=== PATIENT | female | born 2005 | race Caucasian/White ===

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

== ENCOUNTER 2023-12-08 18:19 | Emergency (ER) | payer MEDICAID ==
--- NOTE | 2023-12-08 18:58 | ED ---
ENT HPI - General Source: patient, family, RN notes reviewed - History of Present Illness MD complaint: tooth pain <Deisi Serrano - Last Filed: 12/08/23 19:06> <Thao Witt - Last Filed: 12/08/23 19:29> - General Stated complaint: facial pain L side Time Seen by Provider: 12/08/23 18:31 - History of Present Illness Initial comments: This is a 17-year-old female presents emergency department chief complaint of right-sided dental pain over the past 2 days. Patient denies fevers, nausea, vomiting. States that she has felt mildly fatigued. Patient denies history of dental abscess. Patient has poor dentition and is awaiting appointment just for further evaluation. Patient denies recent antibiotic use. Denies mastoid tenderness, neurological deficits, changes in hearing, tinnitus, blurry vision, double vision, difficulty swallowing, sore throat. (Deisi Serrano) - Related Data Home Medications Medication Instructions Recorded Confirmed Ibuprofen [Motrin Ib] 400 mg PO Q6H PRN 07/20/17 07/20/17 Previous Rx's Medication Instructions Recorded Sulfamethox-Tmp 800-160Mg [Bactrim 1 tab PO Q12HR #6 tab 07/20/17 DS 800-160 mg] Amoxicillin 500 mg PO Q12HR 10 Days #20 capsule 12/08/23 Allergies Allergy/AdvReac Type Severity Reaction Status Date / Time No Known Allergies Allergy Verified 12/08/23 19:21 Review of Systems ROS Other: All systems not noted in ROS Statement are negative. <Deisi Serrano - Last Filed: 12/08/23 19:06> ROS Other: All systems not noted in ROS Statement are negative. <Thao Witt - Last Filed: 12/08/23 19:29> ROS Statement: Those systems with pertinent positive or pertinent negative responses have been documented in the HPI. Past Medical History Past Medical History: No Reported History History of Any Multi-Drug Resistant Organisms: None Reported Past Surgical History: No Surgical Hx Reported Past Alcohol Use History: None Reported Past Drug Use History: None Reported <Deisi Serrano - Last Filed: 12/08/23 19:06> Course Vital Signs 12/08/23 19:17 Temperature 98.2 F Pulse Rate 73 Respiratory 18 Rate Blood Pressure 114/65 O2 Sat by Pulse 100 Oximetry Medical Decision Making <Deisi Serrano - Last Filed: 12/08/23 19:06> - Medical Decision Making Was pt. sent in by a medical professional or institution (JOSEP De La Rosa, AGRICULTURAL SCIENCES PROFESSOR, urgent care, hospital, or snf...) When possible be specific @ -[No] Did you speak to anyone other than the patient for history (EMS, parent, family, police, friend...)? What history was obtained from this source @ -[No] Did you review nursing and triage notes (agree or disagree)? Why? @ -[I reviewed and agree with nursing and triage notes] Were old charts reviewed (outside hosp., previous admission, EMS record, old EKG, old radiological studies, urgent care reports/EKG's, snf records)? Report findings @ -[No old charts were reviewed] Differential Diagnosis (chest pain, altered mental status, abdominal pain women, abdominal pain men, vaginal bleeding, weakness, fever, dyspnea, syncope, headache, dizziness, GI bleed, back pain, seizure, CVA, palpatations, mental health, musculoskeletal)? @ -Dental abscess, dental caries, pulpitis, dental pain, cyst is not all inclusive. EKG interpreted by me (3pts min.). @ -none X-rays interpreted by me (1pt min.). @ -[None done] CT interpreted by me (1pt min.). @ -[None done] U/S interpreted by me (1pt. min.). @ -[None done] What testing was considered but not performed or refused? (CT, X-rays, U/S, labs)? Why? @ -[None] What meds were considered but not given or refused? Why? @ -[None] Did you discuss the management of the patient with other professionals (professionals i.e. JOSEP De La Rosa, AGRICULTURAL SCIENCES PROFESSOR, lab, RT, psych nurse, health and social care teacher, glassware maker demonstrator, teacher, diplomatic officer, hospice case manager)? Give summary @ -[No] Was smoking cessation discussed for >3mins.? @ -[No] Was critical care preformed (if so, how long)? @ -[No] Were there social determinants of health that impacted care today? How? (Homelessness, low income, unemployed, alcoholism, drug addiction, transportat ion, low edu. Level, literacy, decrease access to med. care, residential, rehab)? @ -[No] Was there de-escalation of care discussed even if they declined (Discuss DNR or withdrawal of care, Hospice)? DNR status @ -[No] What co-morbidities impacted this encounter? (DM, HTN, Smoking, COPD, CAD, Cancer, CVA, ARF, Chemo, Hep., AIDS, mental health diagnosis, sleep apnea, morbid obesity)? @ -[None] Was patient admitted / discharged? Hospital course, mention meds given and route, prescriptions, significant lab abnormalities, going to OR and other pertinent info. @ -[hospital course] Undiagnosed new problem with uncertain prognosis? @ -[No] Drug Therapy requiring intensive monitoring for toxicity (Heparin, Nitro, Insulin, Cardizem)? @ -[No] Were any procedures done? @ -[No] Diagnosis/symptom? @ -[default] Acute, or Chronic, or Acute on Chronic? @ -[default] Uncomplicated (without systemic symptoms) or Complicated (systemic symptoms)? @ -[default] Side effects of treatment? @ -[No] Exacerbation, Progression, or Severe Exacerbation? @ -[No] Poses a threat to life or bodily function? How? (Chest pain, [place], [place], pneumonia, PE, COPD, DKA, ARF, appy, cholecystitis, CVA, Diverticulitis, Homicidal, Suici christy, threat to staff... and all critical care pts) @ -[No] (Deisi Serrano) Disposition Is patient prescribed a controlled substance at d/c from ED?: No <Deisi Serrano - Last Filed: 12/08/23 19:06> Is patient prescribed a controlled substance at d/c from ED?: No Time of Disposition: 19:27 <Thao Witt - Last Filed: 12/08/23 19:29> Clinical Impression: Pain, dental, Dental caries, Pulpitis Disposition: HOME SELF-CARE Condition: Good Instructions (If sedation given, give patient instructions): Toothache (ED) Prescriptions: Amoxicillin 500 mg PO Q12HR 10 Days #20 capsule Referrals: Jayro Mclaughlin DO [Primary Care Provider] - 1-2 days
[2023-12-08 19:21] VITALS: TEMP 98.2
[2023-12-08 20:25] VITALS: BP 131/74; PULSE 79; RESP 16
== END 2023-12-08 20:25 | disposition home or self-care (01) ==
LOC: EC 18:19
DX: K02.9 Dental caries, unspecified (principal); K04.01 Reversible pulpitis
CPT/HCPCS: 99283